=== PATIENT | male | born 1995 | race Caucasian/White ===

== ENCOUNTER 2017-01-17 05:08 | Emergency (ER) | payer SELFPAY ==
--- NOTE | 2017-01-17 05:15 | EDM.PDOC ---
ED HPI Trauma - General Chief Complaint: Lower Extremity Injury/Pain Stated Complaint: [facility] Time Seen by Provider: 01/17/17 05:13 Source: Reports: Patient, EMS History Limitations: Reports: No limitations - History of Present Illness INITIAL COMMENTS - FREE TEXT/NARRATIVE: The patient was sleeping in a dumpster and the truck picked it up to dump it and the patient fell out. He landed on his feet and he now has right heel pain. He did not hit his head and he has no LOC. He is not giving me a whole lot of information. He denies any other pain. He does admit to drinking and using drugs. He has no other health problems. Occurred When: just prior to arrival Occurred Where: other (In a dumpster) Method of Injury: fall (Unknown height) Severity: moderate Pain/Injury Location: Reports: lower extremity, right (Heel) Consciousness: Reports: no loss of consciousness Associated Symptoms: Reports: no other symptoms Allergies/ADRs: Allergies No Known Allergies Allergy (Verified 01/17/17 05:16) Home Medications: Ambulatory Orders . [No Known Home Meds] 01/17/17 [Confirmed 01/17/17] Past Medical History - Past Health History Medical/Surgical History: Denies Medical/Surgical History Cardiovascular History: Reports: None Respiratory History: Reports: None Gastrointestinal History: Reports: None Genitourinary History: Reports: Prostate disorder, Pyelonephritis Musculoskeletal History: Reports: Other (see below) Other Musculoskeletal History: broke back at 14 years of age Neurological History: Reports: Concussion Other Neuro History: age 6 or 7 Psychiatric History: Reports: Addiction Endocrine/Metabolic History: Reports: None Hematologic History: Reports: Other (see below) Other Hematologic History: hep c - Infectious Disease History Infectious Disease History: Reports: Hepatitis C - Past Surgical History HEENT Surgical History: Reports: None Cardiovascular Surgical History: Reports: None Male Surgical History: Reports: Circumcision Neurological Surgical History: Reports: None Musculoskeletal Surgical History: Reports: None Social & Family History - Family History Family Medical History: Noncontributory - Tobacco Use Smoking Status *Q: Current Every Day Smoker Years of Tobacco use: 10 Packs/Tins Daily: 1 Second Hand Smoke Exposure: Yes - Caffeine Use Caffeine Use: Reports: Coffee - Recreational Drug Use Recreational Drug Use: Yes Drug Use in Last 12 Months: Yes Recreational Drug Type: Reports: Marijuana/Hashish, Methamphetamine Recreational Drug Last Use: 1 hour ago - Living Situation & Occupation Living situation: Reports: single Occupation: employed Review of Systems - Review of Systems Review Of Systems: See Below Constitutional: Reports: no symptoms Eyes: Reports: no symptoms Ears: Reports: no symptoms Nose: Reports: no symptoms Mouth/Throat: Reports: no symptoms Respiratory: Reports: No Symptoms Cardiovascular: Reports: no symptoms GI/Abdominal: Reports: No symptoms Genitourinary: Reports: no symptoms Musculoskeletal: Reports: other (Right heel pain) Trauma Exam - Physical Exam Exam: See Below Exam Limited By: No limitations General Appearance: Reports: alert, no apparent distress Head: Reports: atraumatic, normocephalic Ears: Reports: normal external exam Nose: Reports: normal inspection Neck: Reports: non-tender, normal alignment, normal inspection Respiratory Exam: Reports: no respiratory distress, lungs clear, normal breath sounds Cardiovascular: Reports: regular rate, rhythm, no edema, no murmur GI/Abdominal: Reports: soft, non tender, no organomegaly Back: Reports: normal inspection Extremities: Reports: other (Mild pain upon palpation to the right heel. Good sensation and pulses. There is no edema noted.) Course - Vital Signs Last Recorded V/S: Last Vital Signs Temp 97 F 01/17/17 05:10 Pulse 84 01/17/17 05:10 Resp 16 01/17/17 05:10 BP 147/99 H 01/17/17 05:10 Pulse Ox 99 01/17/17 05:10 - Orders/Labs/Meds Orders: Active Orders 24 hr Category Date Time Status Foot Comp Min 3V Rt [CR] Stat Exams 01/17/17 05:13 Taken - Re-Assessments/Exams Free Text/Narrative Re-Assessment/Exam: 01/17/17 05:34 His x-ray looks good. I will discharge him home. Departure - Departure Time of Disposition: 05:35 Disposition: Home, Self-Care 01 Condition: good Clinical Impression: Fall Qualifiers: Encounter type: initial encounter Qualified Code(s): W19.XXXA - Unspecified fall, initial encounter Sprain of foot, right Qualifiers: Encounter type: initial encounter Qualified Code(s): S93.601A - Unspecified sprain of right foot, initial encounter Forms: ED Department Discharge Additional Instructions: Take tylenol or motrin for pain. Please return if you are worse. - My Orders Last 24 Hours: My Active Orders 01/17/17 05:13 Foot Comp Min 3V Rt [CR] Stat - Assessment/Plan Last 24 Hours: My Active Orders 01/17/17 05:13 Foot Comp Min 3V Rt [CR] Stat
[2017-01-17 08:19] VITALS: BP 136/88
--- NOTE | 2017-01-17 11:30 | CR ---
Right foot: Three views of the right foot were obtained. Comparison: No previous study. Minimal plantar spur is seen. Joint spaces are preserved. No acute fracture, dislocation or other bony abnormality is seen. Impression: 1. Minimal plantar spur. 2. Right foot exam is otherwise unremarkable. Diagnostic code #2
== END 2017-01-17 08:15 | disposition home or self-care (01) ==
LOC: JD.ED 05:08
DX: S93.601A Unspecified sprain of right foot, initial encounter (principal); F17.210 Nicotine dependence, cigarettes, uncomplicated; W17.89XA Other fall from one level to another, initial encounter; Y92.89 Other specified places as the place of occurrence of the external cause
CPT/HCPCS: 73630-26-RT; 73630-RT; 99282; 99284

== ENCOUNTER 2017-08-04 11:04 | Emergency (ER) | payer SELFPAY ==
[2017-08-04 11:08] VITALS: BP 153/81
--- NOTE | 2017-08-04 12:02 | EDM.PDOCBH ---
ED HPI GENERAL MEDICAL PROBLEM - General Chief Complaint: Drug or Alcohol Abuse Stated Complaint: [employer] Time Seen by Provider: 08/04/17 11:32 Source of Information: Reports: Patient History Limitations: Reports: Intoxication (Methamphetamines) - History of Present Illness INITIAL COMMENTS - FREE TEXT/NARRATIVE: Patient is a 22-year-old male with a history of methamphetamine use for the past 10 years. Presents the ED after [place] [employer] were called to a motel to have the patient remove. Patient resisted arrest and thus had to be can't cough. He has no complaints with evaluation in the ED. He last used methamphetamines at approximately 6 hours ago. This consisted of 121.5 g of meth. Patient smoked the meth and did not inject. Patient states normally he smokes regularly 2/10's meth multiple times daily. Again he's been smoking methamphetamines for 10 years. He has in the past utilized marijuana and also cocaine. States with coming off of the methamphetamines he has no issues. No history of seizures, nausea/vomiting, chest pain, shortness of breath, or any additional complaints. Patient refuses to seek help for methamphetamine use. States he likes the high it gives him. [place]. He has not been working. [facility] girlfriends are taking care of him. 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 - Related Data Allergies Allergy/AdvReac Type Severity Reaction Status Date / Time No Known Allergies Allergy Verified 01/17/17 05:16 Home Meds: Home Meds . [No Known Home Meds] 01/17/17 [History] Past Medical History - Past Health History Medical/Surgical History: Denies Medical/Surgical History Cardiovascular History: Reports: None Respiratory History: Reports: None Gastrointestinal History: Reports: None Genitourinary History: Reports: Prostate Disorder, Pyelonephritis Musculoskeletal History: Reports: Other (See Below) Other Musculoskeletal History: broke back at 14 years of age Neurological History: Reports: Concussion Other Neuro History: age 6 or 7 Psychiatric History: Reports: Addiction Endocrine/Metabolic History: Reports: None Hematologic History: Reports: Other (See Below) Other Hematologic History: hep c - Infectious Disease History Infectious Disease History: Reports: Hepatitis C - Past Surgical History HEENT Surgical History: Reports: None Cardiovascular Surgical History: Reports: None Neurological Surgical History: Reports: None Social & Family History - Family History Family Medical History: Noncontributory - Tobacco Use Smoking Status *Q: Unknown Ever Smoked Years of Tobacco use: 10 Packs/Tins Daily: 1 Second Hand Smoke Exposure: Yes - Caffeine Use Caffeine Use: Reports: Coffee - Recreational Drug Use Recreational Drug Use: Yes Drug Use in Last 12 Months: Yes Recreational Drug Type: Reports: Marijuana/Hashish, Methamphetamine Other Recreational Drug Type: patient will not answer as to what drugs he has been doing. Recreational Drug Use Frequency: Patient Refuses To Answer Recreational Drug Last Use: 1 hour ago - Living Situation & Occupation Living situation: Reports: Single Occupation: Employed ED ROS GENERAL - Review of Systems Review Of Systems: See Below Constitutional: Denies: Fever, Chills Respiratory: Denies: Shortness of Breath, Cough, Sputum Cardiovascular: Denies: Chest Pain, Dyspnea on Exertion, Palpitations GI/Abdominal: Denies: Abdominal Pain, Nausea, Vomiting : Denies: Dysuria Neurological: Denies: Headache Psychiatric: Reports: Cravings, Mood Lability. Denies: Agitation, Anxiety, Confusion, Depression, Hallucinations, Homicidal Ideation, Suicidal Ideation ED EXAM, BEHAVIORAL HEALTH - Physical Exam Exam: See Below Exam Limited By: Intoxication (Methamphetamines) General Appearance: Alert, WD/WN, No Apparent Distress Eye Exam: Bilateral Eye: EOMI, PERRL Ears: Normal External Exam, Hearing Grossly Normal Nose: Normal Inspection Throat/Mouth: Normal Voice, No Airway Compromise Neck: Normal Inspection, Supple Respiratory/Chest: No Respiratory Distress, Lungs Clear, Normal Breath Sounds, Chest Non-Tender Cardiovascular: Normal Peripheral Pulses, Regular Rate, Rhythm, Tachycardia GI/Abdominal: Normal Bowel Sounds, Soft, Non-Tender, No Organomegaly, No Distention Extremities: Normal Inspection, Normal Range of Motion, Non-Tender, No Pedal Edema, Normal Capillary Refill Neurological: Alert, CN II-XII Intact, Normal Cognition, No Motor/Sensory Deficits, Oriented x 3 Psychiatric: Alert, Normal Cognition, Oriented, Other (Patient is under the influence of methamphetamines. He is fidgety, restless, moving excessively while in the bed.). No: Depressed Mood, Flat Affect, Agitated, Disoriented, Inattentive, Non-Communicative, Poor Eye Contact, Uncooperative, Withdrawn, Homicidal Thoughts, Suicidal Plan, Suicidal Thoughts, Auditory Hallucinations, Visual Hallucinations, Paranoid Thoughts, Threatening Behavior Skin Exam: Warm, Dry, Intact, Normal color, No rash COURSE, BEHAVIORAL HEALTH COMP - Course Vital Signs: Last Vital Signs Temp 98.2 F 08/04/17 11:05 Pulse 97 08/04/17 12:15 Resp 16 08/04/17 12:15 BP 153/81 H 08/04/17 11:05 Pulse Ox 97 08/04/17 12:15 Departure - Departure Time of Disposition: 12:02 Disposition: Home, Self-Care 01 Condition: Good Clinical Impression: Methamphetamine abuse, Drug abuse - Discharge Information Instructions: Stimulant Use Disorder-Methamphetamines Referrals: [facility] [Outside] Additional Instructions: Patient is medically cleared to go to halfway. It will take some time for the patient to come off the methamphetamines. If he has any chest pain, shortness of breath, nausea/vomiting, seizures, or other concerning symptoms please return back to the ED. if patient determines at any time that he wants methamphetamine abuse treatment please contact [facility].
== END 2017-08-04 12:15 | disposition home or self-care (01) ==
LOC: JD.ED 11:04
DX: F15.10 Other stimulant abuse, uncomplicated (principal)
CPT/HCPCS: 99283

== ENCOUNTER 2019-07-10 09:24 | Emergency (ER) | payer SELFPAY ==
[2019-07-10 10:06] VITALS: BP 128/76
--- NOTE | 2019-07-10 10:14 | EDM.PDOC ---
ED HPI GENERAL MEDICAL PROBLEM - General Chief Complaint: Drug or Alcohol Abuse Stated Complaint: MEDICAL EVAL FOR [facility] Time Seen by Provider: 07/10/19 10:14 - History of Present Illness INITIAL COMMENTS - FREE TEXT/NARRATIVE: 24-year-old male presents to the emergency room and medical clearance to go to the [facility]. Patient is been using meth for the last 4 or 5 years, and he wants to get straightened out. He denies using any other recreational drugs denies alcohol. Denies any significant medical problems. He just wants to get clean. The patient denies any other complaints at this time - Related Data Allergies Allergy/AdvReac Type Severity Reaction Status Date / Time No Known Allergies Allergy Verified 07/10/19 10:06 Home Meds: Home Meds . [No Known Home Meds] 07/10/19 [History] Past Medical History - Past Health History Medical/Surgical History: Denies Medical/Surgical History Cardiovascular History: Reports: None Respiratory History: Reports: None Gastrointestinal History: Reports: None Genitourinary History: Reports: Prostate Disorder, Pyelonephritis Musculoskeletal History: Reports: Fracture Other Musculoskeletal History: broke back at 14 years of age Neurological History: Reports: Concussion Other Neuro History: age 6 or 7 Psychiatric History: Reports: Addiction Endocrine/Metabolic History: Reports: None Hematologic History: Reports: Other (See Below) Other Hematologic History: hep c - Infectious Disease History Infectious Disease History: Reports: Hepatitis C - Past Surgical History HEENT Surgical History: Reports: Oral Surgery Cardiovascular Surgical History: Reports: None Neurological Surgical History: Reports: None Musculoskeletal Surgical History: Reports: Other (See Below) Social & Family History - Family History Family Medical History: Noncontributory - Tobacco Use Smoking Status *Q: Current Every Day Smoker Years of Tobacco use: 10 Packs/Tins Daily: 1 - Caffeine Use Caffeine Use: Reports: Energy Drinks, Soda, Tea - Recreational Drug Use Recreational Drug Use: Yes Drug Use in Last 12 Months: Yes Recreational Drug Type: Reports: Amphetamines (Speed) Recreational Drug Use Frequency: Daily Recreational Drug Last Use: 07/10/19 - Living Situation & Occupation Living situation: Reports: Single Occupation: Employed ED ROS GENERAL - Review of Systems Review Of Systems: See Below Constitutional: Reports: No Symptoms HEENT: Reports: No Symptoms Respiratory: Reports: No Symptoms Cardiovascular: Reports: No Symptoms Endocrine: Reports: No Symptoms GI/Abdominal: Reports: No Symptoms : Reports: No Symptoms Musculoskeletal: Reports: No Symptoms Skin: Reports: No Symptoms Neurological: Reports: No Symptoms Psychiatric: Reports: No Symptoms. Denies: Anxiety ED EXAM, GENERAL - Physical Exam Exam: See Below Exam Limited By: No Limitations General Appearance: Alert, No Apparent Distress Eye Exam: Bilateral Eye: Normal Inspection, PERRL Ears: Normal External Exam, Normal Canal, Hearing Grossly Normal, Normal TMs Nose: Normal Inspection, Normal Mucosa, No Blood Throat/Mouth: Normal Inspection, Normal Lips, Normal Gums, Normal Oropharynx, Normal Voice, No Airway Compromise Head: Atraumatic, Normocephalic Neck: Normal Inspection, Supple, Non-Tender, Full Range of Motion Respiratory/Chest: No Respiratory Distress, Lungs Clear, Normal Breath Sounds Cardiovascular: Regular Rate, Rhythm, No Edema, No Murmur GI/Abdominal: Normal Bowel Sounds, Soft, Non-Tender Back Exam: Normal Inspection. No: CVA Tenderness (L), CVA Tenderness (R) Extremities: Normal Inspection, Non-Tender, No Pedal Edema Neurological: Alert, Oriented, Normal Cognition Course - Vital Signs Last Recorded V/S: Last Vital Signs Temp 36.7 C 07/10/19 10:05 Pulse 81 07/10/19 10:05 Resp 18 07/10/19 10:05 BP 128/76 07/10/19 10:05 Pulse Ox 100 07/10/19 10:05 - Orders/Labs/Meds Labs: Laboratory Tests 07/10/19 07/10/19 07/10/19 Range/Units 10:32 10:32 10:50 WBC 5.60 (4.23-9.07) K/mm3 RBC 5.82 (4.63-6.08) M/mm3 Hgb 17.5 (13.7-17.5) gm/L Hct 48.9 (40.1-51.0) % MCV 84.0 D (79.0-92.2) fl MCH 30.1 (25.7-32.2) pg MCHC 35.8 H (32.2-35.5) g/dl RDW Std Deviation 41.6 (35.1-43.9) fL Plt Count 260 (163-337) K/mm3 MPV 8.6 L (9.4-12.3) fl Neutrophils % (Manual) 50 (40-60) % Band Neutrophils % 0 (0-10) % Lymphocytes % (Manual) 38 (20-40) % Atypical Lymphs % 0 % Monocytes % (Manual) 9 (2-10) % Eosinophils % (Manual) 3 (0.8-7.0) % Basophils % (Manual) 0 L (0.2-1.2) Platelet Estimate Adequate RBC Morph Comment Normal Sodium 138 (136-145) mEq/L Potassium 3.9 (3.5-5.1) mEq/L Chloride 102 (98-107) mEq/L Carbon Dioxide 30 (21-32) mEq/L Anion Gap 9.9 (5-15) BUN 19 H (7-18) mg/dL Creatinine 1.1 (0.7-1.3) mg/dL Est Cr Clr Drug Dosing 101.20 mL/min Estimated GFR (MDRD) > 60 (>60) mL/min BUN/Creatinine Ratio 17.3 (14-18) Glucose 106 (74-106) mg/dL Calcium 9.1 (8.5-10.1) mg/dL Total Bilirubin 0.8 (0.2-1.0) mg/dL AST 73 H (15-37) U/L ALT 158 H (16-63) U/L Alkaline Phosphatase 79 (46-116) U/L Total Protein 6.9 (6.4-8.2) g/dl Albumin 4.0 (3.4-5.0) g/dl Globulin 2.9 gm/dL Albumin/Globulin Ratio 1.4 (1-2) TSH 3rd Generation 0.627 (0.358-3.74) uIU/mL Urine Color Dark yellow (Yellow) Urine Appearance Clear (Clear) Urine pH 5.5 (5.0-8.0) Ur Specific [place] > or = 1.030 (1.005-1.030) Urine Protein 1+ H (Negative) Urine Glucose (UA) Negative (Negative) Urine Ketones Negative (Negative) Urine Occult Blood Negative (Negative) Urine Nitrite Negative (Negative) Urine Bilirubin 1+ H (Negative) Urine Urobilinogen 1.0 (0.2-1.0) Ur Leukocyte Esterase Negative (Negative) Urine RBC 0-5 (0-5) /hpf Urine WBC 0-5 (0-5) /hpf Ur Squamous Epith Cells 0-5 (0-5) /hpf Amorphous Sediment Few H (NOT SEEN) /hpf Urine Bacteria Few (FEW) /hpf Urine Mucus Few (FEW) /hpf Urine Opiates Screen (QNZPOJ=698) Ur Buprenorphine Scrn (CUTOFF=10) Ur Oxycodone Screen (TWM3XN=280) Urine Methadone Screen (ZIM3QT=148) Ur Propoxyphene Screen (YDLVPR=398) Ur Barbiturates Screen (ZPITXJ=547) Ur Tricyclics Screen (YOWTXK=392) Ur Phencyclidine Scrn (CUTOFF=25) Ur Amphetamine Screen (DQYDHO=337) U Methamphetamines Scrn (XZBGXB=343) U Benzodiazepines Scrn (TXFJLL=648) U Cocaine Metab Screen (ITUHPZ=335) U Marijuana (THC) Screen (CUTOFF=50) Ethyl Alcohol 0.00 (0.00) gm% 07/10/19 Range/Units 10:50 WBC (4.23-9.07) K/mm3 RBC (4.63-6.08) M/mm3 Hgb (13.7-17.5) gm/L Hct (40.1-51.0) % MCV (79.0-92.2) fl MCH (25.7-32.2) pg MCHC (32.2-35.5) g/dl RDW Std Deviation (35.1-43.9) fL Plt Count (163-337) K/mm3 MPV (9.4-12.3) fl Neutrophils % (Manual) (40-60) % Band Neutrophils % (0-10) % Lymphocytes % (Manual) (20-40) % Atypical Lymphs % % Monocytes % (Manual) (2-10) % Eosinophils % (Manual) (0.8-7.0) % Basophils % (Manual) (0.2-1.2) Platelet Estimate RBC Morph Comment Sodium (136-145) mEq/L Potassium (3.5-5.1) mEq/L Chloride (98-107) mEq/L Carbon Dioxide (21-32) mEq/L Anion Gap (5-15) BUN (7-18) mg/dL Creatinine (0.7-1.3) mg/dL Est Cr Clr Drug Dosing mL/min Estimated GFR (MDRD) (>60) mL/min BUN/Creatinine Ratio (14-18) Glucose (74-106) mg/dL Calcium (8.5-10.1) mg/dL Total Bilirubin (0.2-1.0) mg/dL AST (15-37) U/L ALT (16-63) U/L Alkaline Phosphatase (46-116) U/L Total Protein (6.4-8.2) g/dl Albumin (3.4-5.0) g/dl Globulin gm/dL Albumin/Globulin Ratio (1-2) TSH 3rd Generation (0.358-3.74) uIU/mL Urine Color (Yellow) Urine Appearance (Clear) Urine pH (5.0-8.0) Ur Specific [place] (1.005-1.030) Urine Protein (Negative) Urine Glucose (UA) (Negative) Urine Ketones (Negative) Urine Occult Blood (Negative) Urine Nitrite (Negative) Urine Bilirubin (Negative) Urine Urobilinogen (0.2-1.0) Ur Leukocyte Esterase (Negative) Urine RBC (0-5) /hpf Urine WBC (0-5) /hpf Ur Squamous Epith Cells (0-5) /hpf Amorphous Sediment (NOT SEEN) /hpf Urine Bacteria (FEW) /hpf Urine Mucus (FEW) /hpf Urine Opiates Screen Negative (OVGJKE=241) Ur Buprenorphine Scrn Negative (CUTOFF=10) Ur Oxycodone Screen Negative (HQC1CC=894) Urine Methadone Screen Negative (XFU6DB=950) Ur Propoxyphene Screen Negative (TDSXZH=072) Ur Barbiturates Screen Negative (QSUYFK=526) Ur Tricyclics Screen Negative (XDEFOU=735) Ur Phencyclidine Scrn Negative (CUTOFF=25) Ur Amphetamine Screen Presumptive positive H (GZIOEX=715) U Methamphetamines Scrn Negative (PKLARY=770) U Benzodiazepines Scrn Negative (SWJMYD=254) U Cocaine Metab Screen Negative (SCCFHG=912) U Marijuana (THC) Screen Negative (CUTOFF=50) Ethyl Alcohol (0.00) gm% - Re-Assessments/Exams Free Text/Narrative Re-Assessment/Exam: 07/10/19 12:05 Labs reviewed no other medications other than the amphetamines seen on urine toxicology alcohol is negative remaining labs are okay. Dr. Lutz over the [facility] who will come and see the patient. Did discuss starting the patient on Ativan low dose the patient refused this. Departure - Departure Time of Disposition: 12:06 Disposition: Home, Self-Care 01 Clinical Impression: Medical clearance for psychiatric admission - Discharge Information Referrals: PCP,None [Primary Care Provider] - Additional Instructions: Patient is clear to go to the [facility].
== END 2019-07-10 13:02 | disposition home or self-care (01) ==
LOC: JD.ED 09:24
DX: Z04.6 Encounter for general psychiatric examination, requested by authority (principal); F17.210 Nicotine dependence, cigarettes, uncomplicated
CPT/HCPCS: 36415; 80053; 80306; 81001; 84443; 85007; 85027; 99282; 99283; G0480

== ENCOUNTER 2020-04-26 11:32 | Emergency (ER) | payer SELFPAY ==
[2020-04-26 11:49] VITALS: BP 134/79; PULSE 84
--- NOTE | 2020-04-26 12:15 | EDM.PDOC ---
ED HPI GENERAL MEDICAL PROBLEM - General Chief Complaint: Drug or Alcohol Abuse Stated Complaint: DETOX? Time Seen by Provider: 04/26/20 11:50 Source of Information: Reports: Patient History Limitations: Reports: No Limitations - History of Present Illness INITIAL COMMENTS - FREE TEXT/NARRATIVE: Patient is a 24-year-old male who presents to the emergency department with request of "getting clean "from using marijuana. He states he has a preemployment drug screen on Friday that he needs to pass. Last time he used marijuana was about 2 days ago. He also has a history of alcohol use, however states he has not drank since Friday. Patient also complains of a persistent rash to his chest which has been present for about 8 months. He denies any itching or pain associated with the rash. It does not change characteristics and does not seem to come and go. - Related Data Allergies Allergy/AdvReac Type Severity Reaction Status Date / Time No Known Allergies Allergy Verified 07/10/19 10:06 Home Meds: Home Meds Terbinafine [LamISIL AT] 42 gm TP BID #1 tube 04/26/20 [Rx] Past Medical History - Past Health History Medical/Surgical History: Denies Medical/Surgical History Cardiovascular History: Reports: None Respiratory History: Reports: None Gastrointestinal History: Reports: None Genitourinary History: Reports: Prostate Disorder, Pyelonephritis Musculoskeletal History: Reports: Fracture Other Musculoskeletal History: broke back at 14 years of age Neurological History: Reports: Concussion Other Neuro History: age 6 or 7 Psychiatric History: Reports: Addiction Endocrine/Metabolic History: Reports: None Hematologic History: Reports: Other (See Below) Other Hematologic History: hep c - Infectious Disease History Infectious Disease History: Reports: Hepatitis C - Past Surgical History HEENT Surgical History: Reports: Oral Surgery Cardiovascular Surgical History: Reports: None Neurological Surgical History: Reports: None Musculoskeletal Surgical History: Reports: Other (See Below) Social & Family History - Family History Family Medical History: Noncontributory - Tobacco Use Smoking Status *Q: Current Every Day Smoker Years of Tobacco use: 15 Packs/Tins Daily: 1.5 - Caffeine Use Caffeine Use: Reports: Energy Drinks - Recreational Drug Use Recreational Drug Use: Yes Drug Use in Last 12 Months: Yes Recreational Drug Type: Reports: Marijuana/Hashish - Living Situation & Occupation Living situation: Reports: Single Occupation: Employed ED ROS GENERAL - Review of Systems Review Of Systems: See Below Constitutional: Reports: No Symptoms HEENT: Reports: No Symptoms Respiratory: Reports: No Symptoms Cardiovascular: Reports: No Symptoms Endocrine: Reports: No Symptoms GI/Abdominal: Reports: No Symptoms : Reports: No Symptoms Musculoskeletal: Reports: No Symptoms Skin: Reports: Rash Neurological: Reports: No Symptoms Psychiatric: Reports: No Symptoms Hematologic/Lymphatic: Reports: No Symptoms Immunologic: Reports: No Symptoms ED EXAM, GENERAL - Physical Exam Exam: See Below Exam Limited By: No Limitations General Appearance: Alert, WD/WN, No Apparent Distress Respiratory/Chest: No Respiratory Distress, Lungs Clear, Normal Breath Sounds, No Accessory Muscle Use, Chest Non-Tender Cardiovascular: Normal Peripheral Pulses, Regular Rate, Rhythm, No Edema, No Gallop, No JVD, No Murmur, No Rub Neurological: Alert, Oriented, CN II-XII Intact, Normal Cognition, Normal Gait, Normal Reflexes, No Motor/Sensory Deficits Psychiatric: Normal Affect, Normal Mood Skin Exam: Rash (Faint, pink splotchy lesions scattered to the mid chest. Area is not raised or flaky. Has appearance of a fungal rash.) Course - Vital Signs Last Recorded V/S: Last Vital Signs Temp 98.1 F 04/26/20 11:46 Pulse 84 04/26/20 11:46 Resp 16 04/26/20 11:46 BP 134/79 04/26/20 11:46 Pulse Ox 99 04/26/20 11:46 - Orders/Labs/Meds Labs: Laboratory Tests 04/26/20 Range/Units 12:10 Urine Opiates Screen Negative (EPCCSX=263) Ur Buprenorphine Scrn Negative (CUTOFF=10) Ur Oxycodone Screen Negative (NYS5QD=621) Urine Methadone Screen Negative (WXN3GQ=053) Ur Propoxyphene Screen Negative (JFELED=558) Ur Barbiturates Screen Negative (KASZUF=960) Ur Tricyclics Screen Negative (FSUWKR=663) Ur Phencyclidine Scrn Negative (CUTOFF=25) Ur Amphetamine Screen Negative (QEZSLI=937) U Methamphetamines Scrn Negative (MTBNGO=806) U Benzodiazepines Scrn Negative (QTGZPC=578) U Cocaine Metab Screen Negative (KPAAWI=402) U Marijuana (THC) Screen Presumptive positive H (CUTOFF=50) - Re-Assessments/Exams Free Text/Narrative Re-Assessment/Exam: On exam, the rash the patient's chest appears to be fungal in nature. I did discuss with him that for chronic marijuana use, can take up to 30 days for it to clear the system. There is no way to accelerate this process. We will complete a drug screen in the emergency department today to see if it test positive for marijuana. 04/26/20 1215 Patient's drug screen did test positive for marijuana. Discussed with him that it is possible that it may clear by Friday, however it is likely that he will still test positive on Friday. Recommend that he does not use any further marijuana. I will send a prescription for Lamisil cream to treat the fungal infection to his chest. Discharge instructions as documented. Departure - Departure Time of Disposition: 13:27 Disposition: Home, Self-Care 01 Condition: Good Clinical Impression: Marijuana use, Tinea - Discharge Information *PRESCRIPTION DRUG MONITORING PROGRAM REVIEWED*: No *COPY OF PRESCRIPTION DRUG MONITORING REPORT IN PATIENT ALVINO: No Prescriptions: Terbinafine [LamISIL AT] 42 gm TP BID #1 tube Instructions: Cannabis Use Disorder Referrals: PCP,None [Primary Care Provider] - Additional Instructions: You were seen in the emergency department today regarding your marijuana use and a rash on your chest. As we discussed, marijuana can stay in your system for up to 30 days. A drug screen was completed today and did come back positive for marijuana. It is likely that she was still test positive on Friday, however there is always a chance that it could clear your system by that time. Recommend that you do not use any further marijuana. Drink lots of fluids. The rash on your chest appears to be fungal in nature. A prescription for Lamisil cream [place] [facility] [place] [facility]. Uses medication twice daily for 2 weeks. If the condition should worsen or fails to resolve, would recommend that you follow-up in the clinic to discuss the possibility of a dermatology referral. Return to the ER as needed. Sepsis Event Note (ED) - Evaluation Sepsis Screening Result: No Definite Risk - Focused Exam Vital Signs: Vital Signs Temp Pulse Resp BP Pulse Ox 04/26/20 11:46 98.1 F 84 16 134/79 99
== END 2020-04-26 13:50 | disposition home or self-care (01) ==
LOC: JD.ED 11:32
DX: F12.90 Cannabis use, unspecified, uncomplicated (principal); B35.9 Dermatophytosis, unspecified; F17.210 Nicotine dependence, cigarettes, uncomplicated
CPT/HCPCS: 80306; 99282; G0480